=== PATIENT | female | born 1985 | race Caucasian/White ===

== ENCOUNTER 2019-03-25 06:50 | Emergency (ER) | payer BC, OTHER ==
--- NOTE | 2019-03-25 07:14 | ED Physician Documentation ---
General Adult - HISTORIAN Historian: patient - HPI Stated Complaint: dizzy Chief Complaint: General Adult Onset: hours Timing: still present Severity: moderate Further Comments: yes (Pt is a 33 yo female who felt lightheaded after arising from bed this am. Pt "just doesn't feel well." Pt states that her heart rate was a little fast, and that she became sweaty and nauseated. Pt had not eaten. Accucheck on presentation was 85. Pt states that she has hx hypothyroidism and was on medication, but has not been taking it because she has no insurance.) - ROS CONST: weakness, chills EYES/ENT: none CVS/RESP: none GI/: nausea MS/SKIN/LYMPH: none NEURO/PSYCH: dizziness - PAST HX Past History: other (hypothyroidism) Allergies/Adverse Reactions: Allergies Allergy/AdvReac Type Severity Reaction Status Date / Time No Known Allergies Allergy Verified 03/25/19 07:34 Home Medications: Ambulatory Orders Medication Instructions Recorded NK 03/25/19 - SOCIAL HX Smoking History: non-smoker - FAMILY HX Family History: No - REVIEWED ASSESSMENTS Nursing Assessment Reviewed: Yes Vitals Reviewed: Yes Progress - Progress Progress: TSH>100.000 FT3, FT4, pending f/u pcp D/c instructions: You have an abnormal TSH, thyroid blood test, which is very high. Some other send-out Thyroid blood tests have been ordered. Follow up with your doctor about the results of these tests and have your blood re-checked in 4 to 6 weeks after starting the following the medication: Rx Levothyroxine 100 mcg. Take one daily. This medication is not very expensive. A 3-month supply costs about $10 [address] [facility]. - EKG/XRAY/CT EKG: NSR (HR=64; normal EKG) XRAY: chest (neg) General Adult Physical Exam - PHYSICAL EXAM GENERAL APPEARANCE: no distress EENT: pharynx normal NECK: normal inspection, supple RESPIRATORY: no resp distress, chest non-tender, breath sounds normal CVS: reg rate & rhythm, heart sounds normal ABDOMEN: soft, no organomegaly, normal bowel sounds BACK: normal inspection, no CVA tenderness SKIN: warm/dry, normal color EXTREMITIES: non-tender, normal range of motion, no evidence of injury NEURO: oriented X3, motor nml, sensation nml Discharge Clincal Impression: Hypothyroidism Qualifiers: Hypothyroidism type: unspecified Qualified Code(s): E03.9 - Hypothyroidism, unspecified Referrals: Primary Doctor,No [Primary Care Provider] - Condition: Stable Disposition: 01 HOME, SELF-CARE Decision to Admit: NO Decision Time: 09:15
--- NOTE | 2019-03-25 07:48 | Diagnostic Imaging Report ---
YESSY NEAL [facility] [id number] [facility] [address] [place], [place]. [address] Report Submission Date: Mar 25, 2019 7:40:38 AM CDT Patient Study Name: HÉCTOR BULLARD Date: Mar 25, 2019 7:16:24 AM CDT Modality Type: DX Gender: F Description: CHEST 2VIEW : 89 Institution: [facility] Physician: YESSY NEAL PA AND LATERAL CHEST HISTORY: Dizziness and nausea COMPARISON: None PA and Lateral Chest dated March 25, 2019 demonstrates a normal cardiomediastinal silhouette. Pulmonary vascularity is normal. Lungs are clear Aside from calcified granulomata of the right lung. IMPRESSION: NO ACTIVE DISEASE. Old granulomatous disease. Electronically signed on Mar 25, 2019 7:40:38 AM CDT by: Denae HINOJOSA
[2019-03-25 08:00] LABS: eGFR (Non-African) > 60
[2019-03-25 08:04] LABS: BASOPHILS % 0.3 % (0.0-1.5); NEUTROPHILS # 5.2 # k/uL (1.4-7.7)
[2019-03-25] MEDS ORDERED: 0.9 % SODIUM CHLORIDE 1,000 ML IV ONE (08:22)
[2019-03-25 08:53] LABS: TSH > 100.000 mIU/l (0.465-4.685)
[2019-03-25 09:53] VITALS: BP 102/85
[2019-03-25 15:36] LABS: APPEARANCE,URINE CLEAR (CLEAR); COLOR,URINE RED (YELLOW); OCCULT BLOOD,URINE 3+ (NEGATIVE); UROBILINOGEN URINE 0.2 Eu (0.2-1.0)
== END 2019-03-25 09:47 | disposition home or self-care (01) ==
LOC: ED 06:50
DX: E03.9 Hypothyroidism, unspecified (principal)
CPT/HCPCS: 36415; 71046; 80053; 81002; 82550; 84439; 84443; 84481; 84484; 85025; 93005; 96374; 99283; J7030; S1016

== ENCOUNTER 2019-07-13 15:44 | Emergency (ER) | payer OTHER ==
[2019-07-13 16:12] VITALS: BP 130/82
[2019-07-13] MEDS: KETOROLAC TROMETHAMINE 60 MG/2 ML VIAL IM ONE (16:16)
--- NOTE | 2019-07-13 16:35 | ED Physician Documentation ---
Low Back Pain - HISTORIAN Historian: patient - HPI Stated Complaint: anderson leg pain Chief Complaint: Low Back Pain/ Injury Additional Information: 33 year old female presents with c/o low back pain with radiating pain down the legs. She has had back surgery in the past. She is trying to get in to see her back surgeon Dr. Olivas at the [facility] but has to wait. She has her MRI for low back. History: history of chronic pain:, back pain Onset: days ago Duration: continues in ED Recent Injury: No Where: home Severity: moderate Quality: burning, similar- prior back pain Associated Symptoms: denies: fever, chills, nausea, vomiting, problems urinating, difficulty walking Worsened By:: nothing Relieved By: nothing - ROS CONST: no problems CVS/RESP: none EYES/ENT: none MS/SKIN/LYMPH: back pain Neuro/Psych: none GI/: denies: abdominal pain - PAST HX Past History: back pain Other History: other (hypothyroid) Surgeries/Procedures: back surgery, Allergies/Adverse Reactions: Allergies Allergy/AdvReac Type Severity Reaction Status Date / Time No Known Allergies Allergy Verified 07/13/19 16:02 Home Medications: Ambulatory Orders Medication Instructions Recorded Baclofen 10 tab PO TID PRN 07/13/19 Gabapentin [Neurontin] 100 mg PO TID #90 capsule 07/13/19 Levothyroxine Sodium 65 tab PO DAILY 07/13/19 Prednisone 10 tab PO DIRECTED 07/13/19 - SOCIAL HX Smoking History: non-smoker Alcohol Use: none Drug Use: none - FAMILY HX Family History: none - VITAL SIGNS Vital Signs: Vital Signs Temp Pulse Resp BP Pulse Ox 97.9 F 89 19 130/82 99 07/13/19 16:16 07/13/19 16:16 07/13/19 16:16 07/13/19 16:16 07/13/19 16:16 - REVIEWED ASSESSMENTS Nursing Assessment Reviewed: Yes Vitals Reviewed: Yes ED Results Lab/Radiology - Orders Orders: ED Orders Category Date Time Status Ketorolac Tromethamine [Toradol] Med 07/13/19 16:02 Discontinued 60 mg IM NOW ONE Low Back Pain/Injury - Physical Exam General Appearance: no acute distress, alert EENT: eye inspection normal, ENT inspection normal, pharynx normal, no signs of dehydration, GIAN Neck: non-tender Resp/CVS: breath sounds nml, heart sounds nml Back: vertebral point-tendernes Straight Leg Raising: Negative Left, Negative Right Neuro/Psych: oriented x3, motor nml, sensation nml Skin: warm/dry, normal color Extremities: non-tender, normal range of motion Discharge Clincal Impression: Chronic low back pain with bilateral sciatica Prescriptions: Gabapentin [Neurontin] 100 mg PO TID #90 capsule Referrals: Primary Doctor,No [Primary Care Provider] - 2 Days Additional Instructions: Patient is pending seeing ortho; Dr. Olivas- would like to see him at the [facility] Condition: Good Disposition: 01 HOME, SELF-CARE Decision to Admit: NO Decision Time: 02:25
== END 2019-07-13 16:16 | disposition home or self-care (01) ==
LOC: ED 15:44
DX: M54.41 Lumbago with sciatica, right side (principal); M54.42 Lumbago with sciatica, left side
CPT/HCPCS: 96372; 99283; J1885

== ENCOUNTER 2019-09-03 19:11 | Emergency (ER) | payer OTHER ==
[2019-09-03 19:29] VITALS: BP 125/85
[2019-09-03] MEDS ORDERED: NYSTATIN 15 GM TOPICAL POWDER BOTTLE TP ONE (19:29)
--- NOTE | 2019-09-03 19:32 | ED Physician Documentation ---
Skin Rash - HISTORIAN Historian: patient - HPI Stated Complaint: RASH UNDER L BREAST Chief Complaint: Skin Rash Additional Information: 34 year old female had back surgery a few weeks ago and has been on a couple of rounds of antibiotics; now has redness and irritation under the left breast that she states is starting to bother her; has been going on for a couple of days. Onset: days ago Timing: still present Location: other (under left breast) Quality: itchy, burning Identified Cause?: Yes (yeast) Where: home Context: Medication Exposure: antibiotic Context: Food Exposure: none - ROS CONST: none CVS/RESP: none EYES/ENT: none GI/: none MS/SKIN/LYMPH: none NEURO/PSYCH: none - PAST HX Past History: other (hypothyroid) Other History: none Surgeries/Procedures: Yes (back surgery) Immunizations: UTD Allergies/Adverse Reactions: Allergies Allergy/AdvReac Type Severity Reaction Status Date / Time No Known Allergies Allergy Verified 09/03/19 19:29 Home Medications: Ambulatory Orders Medication Instructions Recorded Baclofen 10 tab PO TID PRN 07/13/19 Gabapentin [Neurontin] 100 mg PO TID #90 capsule 07/13/19 Levothyroxine Sodium 65 tab PO DAILY 07/13/19 Prednisone 10 tab PO DIRECTED 07/13/19 - SOCIAL HX Smoking History: non-smoker Alcohol Use: none Drug Use: none - FAMILY HX Family History: none - VITAL SIGNS Vital Signs: Vital Signs Temp Pulse Resp BP Pulse Ox 98.5 F 86 18 125/85 98 09/03/19 19:32 09/03/19 19:32 09/03/19 19:32 09/03/19 19:32 09/03/19 19:32 - REVIEWED ASSESSMENTS Nursing Assessment Reviewed: Yes Vitals Reviewed: Yes ED Results Lab/Radiology - Orders Orders: ED Orders Category Date Time Status Nystatin Powder [Nystop] Med 09/03/19 19:29 Discontinued 1 appl TP NOW ONE Skin Rash Physical Exam - EXAM General Appearance: no acute distress, alert Skin: skin rash (under left breast) Location: other (Under left breast) Character: fine, erythematous Symptoms: inflammation Extremities: non-tender, nml ROM EENT: eyes nml inspection, gums nml, other (angular chellitis) Neck: trachea midline Respiratory: breath sounds normal CVS: heart sounds nml Abdomen: non-tender, nml bowel sounds Neuro/Psych: oriented x3, CN's nml as tested, motor nml, sensation nml, mood/affect nml Discharge Clincal Impression: Skin candidiasis Referrals: Primary Doctor,No [Primary Care Provider] - 2 Days Additional Instructions: Use Nystatin powder 3 times a day to the affected area Try to keep the area clean and dry Use a mild soap; ex. Dove Continue with medications as directed Follow up with PCP next week for re-evaluation Condition: Stable Disposition: 01 HOME, SELF-CARE Decision to Admit: NO Decision Time: 19:32
== END 2019-09-03 19:31 | disposition home or self-care (01) ==
LOC: ED 19:11
DX: B37.2 Candidiasis of skin and nail (principal)
CPT/HCPCS: 99282